=== PATIENT | female | born 2000 | race African-American/Black ===

== ENCOUNTER 2024-01-14 16:18 | Emergency (ER) | payer OTHER, SELFPAY ==
[2024-01-14] MEDS ORDERED: HYDROcodone/Acetaminophen 5/325 mg Tablet ONE (16:49)
== END 2024-01-14 17:30 | disposition home or self-care (01) ==
LOC: CSHERS 16:18
DX: K04.7 Periapical abscess without sinus (principal)
CPT/HCPCS: 99282